=== PATIENT | female | born 1950 | race Caucasian/White ===

== ENCOUNTER → 2016-11-03 | Outpatient (CLI) | payer MEDICARE ==
[2016-11-03 13:39] LABS: BASO % 0.4 % (0.0-1.0); EOS # 0.1 K/mm3 (0.0-0.50); EOS % 1.5 % (0.0-3.0); LARGE UNSTAINED CELL # 0.2 K/mm3 (0.0-0.4); LARGE UNSTAINED CELL % 2.5 % (0.0-4.0); LYMPH # 2.5 K/mm3 (1.5-4.5); MEAN CORPUSCULAR HEMOGLOBIN 27.9 pg (27.0-33.0); MEAN CORPUSCULAR HGB CONC 31.7 g/dl (32.0-36.5); MONO # 0.6 K/mm3 (0.0-0.8); NEUTROPHILS # 4.9 K/mm3 (1.8-7.7); NEUTROPHILS % 58.6 % (36.0-66.0); PLATELET COUNT, AUTOMATED 421 k/mm3 (150-450); RED CELL DISTRIBUTION WIDTH 12.6 % (11.5-14.5); WHITE BLOOD COUNT 8.4 K/mm3 (4.0-10.0)
[2016-11-03 13:47] LABS: ALBUMIN 4.1 GM/DL (3.2-5.2); ALBUMIN/GLOBULIN RATIO 1.32 (1.00-1.93); ALKALINE PHOSPHATASE 163 U/L (45-117); ALT/SGPT 25 U/L (12-78); AMYLASE 94 U/L (25-115); ANION GAP 8 MEQ/L (8-16); AST/SGOT 18 U/L (15-37); BILIRUBIN,TOTAL 0.4 MG/DL (0.2-1.0); BLOOD UREA NITROGEN 19 MG/DL (7-18); CALCIUM LEVEL 10.7 MG/DL (8.8-10.2); CARBON DIOXIDE LEVEL 28 MEQ/L (21-32); CHLORIDE LEVEL 104 MEQ/L (98-107); GLOMERULAR FILTRATION RATE > 60.0 (>45); GLUCOSE, FASTING 80 MG/DL (80-110); POTASSIUM SERUM 4.2 MEQ/L (3.5-5.1); SODIUM LEVEL 140 MEQ/L (136-145); TOTAL PROTEIN 7.2 GM/DL (6.4-8.2)
[2016-11-05 00:11] LABS: TISSUE TRANSGLUTAMINASE IgG <2 U/mL (0-5)
== END ==
LOC: M SMT 09:55
PROVIDERS: ATTEND Family Medicine
DX: R19.7 Diarrhea, unspecified (principal)

== ENCOUNTER → 2017-01-21 | Outpatient (CLI) | payer MEDICARE | LOC: M SMT 15:50 | PROVIDERS: ATTEND Internal Medicine Gastroenterology | DX: R19.4 Change in bowel habit (principal); K59.1 Functional diarrhea; R74.8 Abnormal levels of other serum enzymes ==

== ENCOUNTER → 2017-03-30 | Outpatient (REF) | payer MEDICARE | LOC: M LAB REF 08:00 | PROVIDERS: ATTEND Internal Medicine Gastroenterology | DX: K59.1 Functional diarrhea (principal) ==

== ENCOUNTER → 2017-04-22 | Outpatient (CLI) | payer MEDICARE ==
[2017-04-22 13:39] LABS: ANION GAP 6 MEQ/L (8-16); BLOOD UREA NITROGEN 16 MG/DL (7-18); CALCIUM LEVEL 10.3 MG/DL (8.8-10.2); CARBON DIOXIDE LEVEL 26 MEQ/L (21-32); CHLORIDE LEVEL 107 MEQ/L (98-107); CREATININE FOR GFR 0.78 MG/DL (0.55-1.02); GLOMERULAR FILTRATION RATE > 60.0 (>45); GLUCOSE, FASTING 87 MG/DL (80-110); POTASSIUM SERUM 4.3 MEQ/L (3.5-5.1); SODIUM LEVEL 139 MEQ/L (136-145)
== END ==
LOC: M SMT 09:51
PROVIDERS: ATTEND Family Medicine
DX: E83.52 Hypercalcemia (principal)

== ENCOUNTER → 2017-06-17 | Outpatient (CLI) | payer MEDICARE ==
[2017-06-17 13:39] LABS: ANION GAP 9 MEQ/L (8-16); BLOOD UREA NITROGEN 16 MG/DL (7-18); CALCIUM LEVEL 10.1 MG/DL (8.8-10.2); CARBON DIOXIDE LEVEL 26 MEQ/L (21-32); CHLORIDE LEVEL 106 MEQ/L (98-107); CREATININE FOR GFR 0.75 MG/DL (0.55-1.02); GLOMERULAR FILTRATION RATE > 60.0 (>45); GLUCOSE, FASTING 89 MG/DL (80-110); POTASSIUM SERUM 4.2 MEQ/L (3.5-5.1); SODIUM LEVEL 141 MEQ/L (136-145)
== END ==
LOC: M SMT 09:08
PROVIDERS: ATTEND Family Medicine
DX: E21.0 Primary hyperparathyroidism (principal)

== ENCOUNTER → 2017-06-22 | Outpatient (CLI) | payer MEDICARE ==
--- NOTE | 2017-06-22 10:20 | REP ---
STANDING AP BILATERAL KNEES: Standing AP views of bilateral knees performed. There is no fracture or dislocation. I do not see significant arthritic change on the right side. However, on the left, there is mild medial joint space narrowing with subchondral sclerosis. There is mild spurring of the tibial spines. IMPRESSION: Mild degenerative changes left knee in the medial compartment. Signed by Jose Siegel MD 06/22/2017 01:41 P
--- NOTE | 2017-06-22 10:21 | REP ---
LEFT KNEE SERIES: Four views of the left knee are performed. There is no acute fracture or dislocation. There is mild medial joint space narrowing with subchondral sclerosis and spurring. There is mild superior patellar spurring. There is no significant joint effusion. IMPRESSION: Mild degenerative changes. Signed by Jose Siegel MD 06/22/2017 01:41 P
[2017-06-22 10:34] LABS: CHOLESTEROL LEVEL 165 MG/DL (<200); TRIGLYCERIDES LEVEL 109 MG/DL (<150); URIC ACID 8.4 MG/DL (2.6-6.0)
[2017-06-24 00:55] LABS: Lyme Disease IgG/IgM Antibodie <0.91 ISR (0.00-0.90); Lyme Disease IgM Ab Quantitati <0.80 index (0.00-0.79)
== END ==
LOC: M LAB 09:31
PROVIDERS: ATTEND Family Medicine
DX: M25.562 Pain in left knee (principal); Z79.899 Other long term (current) drug therapy

== ENCOUNTER 2017-09-15 13:16 | Day surgery (SDC) | payer MEDICARE ==
[~2017-09-15] VITALS: Ht 157.5 cm; Wt 70.8 kg
[2017-09-15] MEDS ORDERED: D5W 1,000 ML IV SCH (13:30)
[2017-09-15] MEDS ORDERED: SIMV40TA2 PO (13:43)
[2017-09-15] MEDS ORDERED: AMLO5TAB2 PO (13:43)
[2017-09-15] MEDS ORDERED: LOSA100T36 PO (13:43)
[2017-09-15] MEDS ORDERED: LEVOTAB10 PO (13:43)
[2017-09-15] MEDS ORDERED: ASPI1TAB PO (13:54)
[2017-09-15] MEDS ORDERED: LIDOCAINE VISCOUS 2% SOLN 15ML UDC As Ordered ONE (14:20)
[2017-09-15] MEDS ORDERED: MIDAZOLAM INJ 2 MG/2 ML VIAL (J2250) As Ordered ONE ×2 (14:21→14:22)
[2017-09-15 15:45] VITALS: BP 126/87
[2017-09-15] MEDS ORDERED: NS 1,000 ML IV SCH (15:45)
[2017-09-15] MEDS ORDERED: MIDAZOLAM INJ 5 MG/ML VIAL (J2250) IV ONE (15:45)
--- NOTE | 2017-09-16 08:52 | T-ECHO ---
DATE OF PROCEDURE: 09/15/2017 PREPROCEDURE DIAGNOSES: Secundum atrial septal defect with interatrial septal aneurysm. POSTPROCEDURE DIAGNOSIS: Secundum atrial septal defect with interatrial septal aneurysm. FINDINGS: 0.55 cm secundum atrial septal defect, associated interatrial septal aneurysm. Mitral valve prolapse with moderate mitral valve regurgitation. PROCEDURE PERFORMED: Transesophageal echocardiogram (no saline contrast). PROCEDURE PERFORMED BY: Vito Samano MD LAW OFFICE RECEPTIONIST: None. INTRAVENOUS (IV) CONSCIOUS SEDATION: Midazolam 5 mg IV. COMPLICATIONS: None. PROCEDURE DESCRIPTION: Patient was given viscous lidocaine to gargle at the start of the procedure. She received a total of 5 mg of midazolam IV for conscious sedation. Rhythm was sinus. Esophageal intubation was accomplished without difficulty using a Sid phased array two-dimensional multiplane transesophageal echocardiogram probe. The left ventricle appeared normal in size and systolic function. Interatrial septal aneurysm was present involving the secundum portion of the atrial septum. Towards the lower portion of the secundum portion of the interatrial septum was a 0.55 cm diameter secundum atrial septal defect, which demonstrated continuous unidirectional low from left atrium to right atrium by color flow Doppler. The amount of shunting from left atrium to right atrium overall appears to be small. Pulmonary venous inflow connections to the left atrium were normal. No thrombi were seen involving the inter-atrial septal aneurysm. No masses, thrombi, or spontaneous echo contrast was seen within the atria or their appendages. Left ventricle appeared normal in size and systolic function. No regional wall motion abnormalities of the left ventricle. No pericardial effusion. Distal aortic arch and descending thoracic aorta appeared normal. Aortic valve was three-cuspid and was structurally and functionally normal. Mild prolapse of the mitral leaflets was present, especially involving the posterior mitral leaflet. Associated moderate mitral regurgitation. CONCLUSIONS: 1. Small secundum atrial septal defect measuring 0.55 cm in diameter with mild amount of left atrium to right atrium shunting. No right atrium to left atrium shunting. 2. Interatrial septal aneurysm. 3. 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 4. Normal left ventricle size and systolic function. RECOMMENDATIONS: Because the interatrial septal aneurysm with associated atrial septal defect has not been associated with any previous embolic events and because the amount of shunting across the small size atrial septal aneurysm appears to be small, recommend medical management rather than closure. Suggest continuation of aspirin as long as the patient can tolerate this medication. Copy: Dr. Cora Osuna Ag[place]
== END 2017-09-15 15:50 | disposition home or self-care (01) ==
LOC: M OPP 13:16
PROVIDERS: ATTEND Internal Medicine Cardiovascular Disease
DX: Q21.1 Atrial septal defect (principal); I10 Essential (primary) hypertension; E78.5 Hyperlipidemia, unspecified; R01.1 Cardiac murmur, unspecified; R03.0 Elevated blood-pressure reading, without diagnosis of hypertension; Z79.82 Long term (current) use of aspirin; Z79.899 Other long term (current) drug therapy
CPT/HCPCS: 93312; 93320; 93325; J2250

== ENCOUNTER → 2017-10-14 | Outpatient (CLI) | payer MEDICARE ==
[2017-10-14 13:26] LABS: IONIZED CALCIUM 5.3 MG/DL (4.5-5.3)
[2017-10-14 14:26] LABS: ANION GAP 5 MEQ/L (8-16); BLOOD UREA NITROGEN 17 MG/DL (7-18); CALCIUM LEVEL 10.3 MG/DL (8.8-10.2); CARBON DIOXIDE LEVEL 30 MEQ/L (21-32); CHLORIDE LEVEL 107 MEQ/L (98-107); CREATININE FOR GFR 0.73 MG/DL (0.55-1.02); GLOMERULAR FILTRATION RATE > 60.0 (>45); GLUCOSE, FASTING 88 MG/DL (80-110); POTASSIUM SERUM 4.8 MEQ/L (3.5-5.1); SODIUM LEVEL 142 MEQ/L (136-145)
[2017-10-14 16:31] LABS: PTH INTACT 94.9 PG/ML (14.0-72.0)
== END ==
LOC: M SMT 08:57
DX: E21.0 Primary hyperparathyroidism (principal)
CPT/HCPCS: 82330

== ENCOUNTER 2017-11-07 08:33 | Emergency (ER) | payer MEDICARE ==
[2017-11-07] MEDS: ONDANSETRON 4MG/2ML VIAL (J2405) IV (09:30)
[2017-11-07] MEDS: fentaNYL 100 MCG/2 ML INJECTION (J3010) IV ×2 (10:02→11:29)
[2017-11-07 10:21] LABS: BASO % 0.2 % (0.0-1.0); EOS # 0.1 10^3/uL (0.0-0.50); EOS % 0.3 % (0.0-3.0); HEMATOCRIT 42.7 % (36.0-47.0); HEMOGLOBIN 14.2 g/dl (12.0-16.0); IMMATURE GRANULOCYTE # 0.1 10^3/uL (0-0); IMMATURE GRANULOCYTE % 0.4 % (0-0); LYMPH # 1.8 10^3/uL (1.5-4.5); LYMPH % 10.1 % (24.0-44.0); MEAN CORPUSCULAR HEMOGLOBIN 28.7 pg (27.0-33.0); MEAN CORPUSCULAR HGB CONC 33.3 g/dl (32.0-36.5); MEAN CORPUSCULAR VOLUME 86.4 fl (80.0-96.0); MONO # 0.8 10^3/uL (0.0-0.8); MONO % 4.7 % (0.0-5.0); NEUTROPHILS # 14.7 10^3/uL (1.8-7.7); NEUTROPHILS % 84.3 % (36.0-66.0); PLATELET COUNT, AUTOMATED 421 10^3/uL (150-450); RED BLOOD COUNT 4.94 10^6/uL (4.00-5.40); RED CELL DISTRIBUTION WIDTH 13.2 % (11.5-14.5); WHITE BLOOD COUNT 17.5 10^3/uL (4.0-10.0)
[2017-11-07 10:44] LABS: ANION GAP 7 MEQ/L (8-16); BLOOD UREA NITROGEN 16 MG/DL (7-18); CALCIUM LEVEL 10.6 MG/DL (8.8-10.2); CARBON DIOXIDE LEVEL 28 MEQ/L (21-32); CHLORIDE LEVEL 105 MEQ/L (98-107); CREATININE FOR GFR 0.78 MG/DL (0.55-1.30); GLOMERULAR FILTRATION RATE > 60.0 (>45); GLUCOSE, FASTING 101 MG/DL (70-100); POTASSIUM SERUM 4.1 MEQ/L (3.5-5.1); SODIUM LEVEL 140 MEQ/L (136-145)
== END 2017-11-07 11:33 | disposition short-term general hospital (02) ==
LOC: M ED 08:33
DX: S82.302A Unspecified fracture of lower end of left tibia, initial encounter for closed fracture (principal); W00.0XXA Fall on same level due to ice and snow, initial encounter; Y92.018 Other place in single-family (private) house as the place of occurrence of the external cause; I10 Essential (primary) hypertension
CPT/HCPCS: J2405

== ENCOUNTER → 2018-02-21 | Outpatient (CLI) | payer MEDICARE ==
[2018-02-21 18:18] LABS: BASO % 0.4 % (0.0-1.0); EOS # 0.1 10^3/uL (0.0-0.50); EOS % 1.4 % (0.0-3.0); HEMATOCRIT 41.9 % (36.0-47.0); HEMOGLOBIN 13.6 g/dl (12.0-15.5); IMMATURE GRANULOCYTE % 0.3 % (0-3.0); LYMPH # 3.2 10^3/uL (1.5-4.5); LYMPH % 31.1 % (24.0-44.0); MEAN CORPUSCULAR HEMOGLOBIN 28.9 pg (27.0-33.0); MEAN CORPUSCULAR HGB CONC 32.5 g/dl (32.0-36.5); MEAN CORPUSCULAR VOLUME 89.1 fl (80.0-96.0); MONO % 9.2 % (0.0-5.0); NEUTROPHILS % 57.6 % (36.0-66.0); PLATELET COUNT, AUTOMATED 434 10^3/uL (150-450); RED CELL DISTRIBUTION WIDTH 13.4 % (11.5-14.5); WHITE BLOOD COUNT 10.4 10^3/uL (4.0-10.0)
[2018-02-21 18:28] LABS: ANION GAP 7 MEQ/L (8-16); BLOOD UREA NITROGEN 14 MG/DL (7-18); CALCIUM LEVEL 10.5 MG/DL (8.8-10.2); CARBON DIOXIDE LEVEL 27 MEQ/L (21-32); CHLORIDE LEVEL 109 MEQ/L (98-107); CREATININE FOR GFR 0.79 MG/DL (0.55-1.30); GLOMERULAR FILTRATION RATE > 60.0 (>45); GLUCOSE, FASTING 82 MG/DL (70-100); POTASSIUM SERUM 4.3 MEQ/L (3.5-5.1); SODIUM LEVEL 143 MEQ/L (136-145)
== END ==
LOC: M SMT 11:58
DX: Z01.818 Encounter for other preprocedural examination (principal)
CPT/HCPCS: 80048

== ENCOUNTER → 2018-04-04 | Outpatient (CLI) | payer MEDICARE | LOC: M WHC 14:25 | DX: M84.462A Pathological fracture, left tibia, initial encounter for fracture (principal); Z78.0 Asymptomatic menopausal state | CPT/HCPCS: 77080 ==

== ENCOUNTER → 2018-04-27 | Outpatient (CLI) | payer MEDICARE | LOC: M WHC 09:17 | DX: Z12.31 Encounter for screening mammogram for malignant neoplasm of breast (principal) | CPT/HCPCS: 77067 ==

== ENCOUNTER → 2018-09-01 | Outpatient (CLI) | payer MEDICARE ==
[2018-09-01 13:27] LABS: BASO % 0.3 % (0.0-1.0); EOS # 0.2 10^3/uL (0.0-0.50); EOS % 2.1 % (0.0-3.0); HEMATOCRIT 43.4 % (36.0-47.0); HEMOGLOBIN 14.1 g/dl (12.0-15.5); IMMATURE GRANULOCYTE % 0.3 % (0-3.0); LYMPH # 2.5 10^3/uL (1.5-4.5); LYMPH % 28.7 % (24.0-44.0); MEAN CORPUSCULAR HEMOGLOBIN 28.8 pg (27.0-33.0); MEAN CORPUSCULAR HGB CONC 32.5 g/dl (32.0-36.5); MEAN CORPUSCULAR VOLUME 88.6 fl (80.0-96.0); MONO # 0.9 10^3/uL (0.0-0.8); NEUTROPHILS # 4.9 10^3/uL (1.8-7.7); NEUTROPHILS % 57.6 % (36.0-66.0); PLATELET COUNT, AUTOMATED 471 10^3/uL (150-450); RED CELL DISTRIBUTION WIDTH 13.2 % (11.5-14.5); WHITE BLOOD COUNT 8.6 10^3/uL (4.0-10.0)
[2018-09-01 13:35] LABS: ALBUMIN 3.7 GM/DL (3.2-5.2); ALBUMIN/GLOBULIN RATIO 1.32 (1.00-1.93); ALKALINE PHOSPHATASE 136 U/L (45-117); ALT/SGPT 36 U/L (12-78); ANION GAP 6 MEQ/L (8-16); AST/SGOT 20 U/L (7-37); BILIRUBIN,TOTAL 0.5 MG/DL (0.2-1.0); BLOOD UREA NITROGEN 16 MG/DL (7-18); CALCIUM LEVEL 8.5 MG/DL (8.8-10.2); CARBON DIOXIDE LEVEL 30 MEQ/L (21-32); CHLORIDE LEVEL 108 MEQ/L (98-107); CHOLESTEROL LEVEL 143 MG/DL (<200); CHOLESTEROL RISK RATIO 2.918 (<5); CREATININE FOR GFR 0.77 MG/DL (0.55-1.30); GLOMERULAR FILTRATION RATE > 60.0 (>39); GLUCOSE, FASTING 88 MG/DL (70-100); HDL CHOLESTEROL 49 MG/DL (>40); LDL CHOLESTEROL 74 MG/DL (<100); NON-HDL-C 94 MG/DL; POTASSIUM SERUM 4.4 MEQ/L (3.5-5.1); SODIUM LEVEL 144 MEQ/L (136-145); TOTAL PROTEIN 6.5 GM/DL (6.4-8.2); TRIGLYCERIDES LEVEL 100 MG/DL (<150)
[2018-09-01 13:39] LABS: PTH INTACT 45.3 PG/ML (18.5-88.0); TOTAL 25(OH) VITAMIN D 44.2 NG/ML (30.0-100.0)
== END ==
LOC: M SMT 07:56
DX: I10 Essential (primary) hypertension (principal); E21.0 Primary hyperparathyroidism; E78.5 Hyperlipidemia, unspecified; E55.9 Vitamin D deficiency, unspecified
CPT/HCPCS: 80053

== ENCOUNTER → 2019-05-08 | Outpatient (CLI) | payer MEDICARE ==
[~2019-05-08] MED LIST: AMLO5TAB6 PO; ASPI81TA26 PO; FISH100049 PO; LEVOTAB10 PO; LOSA100T50 PO; MONT10TA2 PO; PRESCAP PO; SIMV40TA2 PO; VITA100067 PO
[2019-05-08 10:55] LABS: BASO % 0.5 % (0.0-1.0); EOS # 0.3 10^3/uL (0.0-0.50); HEMATOCRIT 43.3 % (36.0-47.0); HEMOGLOBIN 14.1 g/dl (12.0-15.5); LYMPH # 2.8 10^3/uL (1.5-4.5); LYMPH % 32.2 % (24.0-44.0); MEAN CORPUSCULAR HEMOGLOBIN 28.7 pg (27.0-33.0); MEAN CORPUSCULAR HGB CONC 32.6 g/dl (32.0-36.5); MEAN CORPUSCULAR VOLUME 88.2 fl (80.0-96.0); MONO # 0.8 10^3/uL (0.0-0.8); MONO % 9.2 % (0.0-5.0); NEUTROPHILS # 4.8 10^3/uL (1.8-7.7); NEUTROPHILS % 54.9 % (36.0-66.0); PLATELET COUNT, AUTOMATED 433 10^3/uL (150-450); RED BLOOD COUNT 4.91 10^6/uL (4.00-5.40); WHITE BLOOD COUNT 8.7 10^3/uL (4.0-10.0)
[2019-05-08 11:14] LABS: ALBUMIN 3.8 GM/DL (3.2-5.2); ALT/SGPT 20 U/L (12-78); BILIRUBIN,TOTAL 0.4 MG/DL (0.2-1.0); BLOOD UREA NITROGEN 28 MG/DL (7-18); CALCIUM LEVEL 8.8 MG/DL (8.8-10.2); CARBON DIOXIDE LEVEL 29 MEQ/L (21-32); CHLORIDE LEVEL 108 MEQ/L (98-107); CHOLESTEROL LEVEL 169 MG/DL (<200); CHOLESTEROL RISK RATIO 3.017 (<5); CREATININE FOR GFR 0.83 MG/DL (0.55-1.30); FREE T4 0.96 NG/DL (0.76-1.46); GLOMERULAR FILTRATION RATE > 60.0 (>39); GLUCOSE, FASTING 85 MG/DL (70-100); HDL CHOLESTEROL 56 MG/DL (>40); LDL CHOLESTEROL 93 MG/DL (<100); NON-HDL-C 113 MG/DL; POTASSIUM SERUM 4.2 MEQ/L (3.5-5.1); SODIUM LEVEL 143 MEQ/L (136-145); TOTAL 25(OH) VITAMIN D 28.9 NG/ML (30.0-100.0); TOTAL PROTEIN 6.6 GM/DL (6.4-8.2); TRIGLYCERIDES LEVEL 102 MG/DL (<150)
== END ==
LOC: M SMT 08:04
PROVIDERS: ATTEND Physician Assistant
DX: I10 Essential (primary) hypertension (principal); E78.5 Hyperlipidemia, unspecified; Z13.0 Encounter for screening for diseases of the blood and blood-forming organs and certain disorders involving the immune mechanism; E55.9 Vitamin D deficiency, unspecified

== ENCOUNTER → 2020-04-01 | Outpatient (CLI) | payer MEDICARE ==
[~2020-04-01] MED LIST changes: -MONT10TA2 PO; +MONT10TA4 PO; -SIMV40TA2 PO; +SIMV40TA20 PO
[2020-04-01 11:59] LABS: BASO % 0.3 % (0.0-1.0); EOS # 0.3 10^3/uL (0.0-0.5); EOS % 3.5 % (0.0-3.0); HEMATOCRIT 42.2 % (36.0-47.0); HEMOGLOBIN 13.4 g/dl (12.0-15.5); LYMPH # 2.6 10^3/uL (1.5-5.0); LYMPH % 30.1 % (24.0-44.0); MEAN CORPUSCULAR HEMOGLOBIN 28.2 pg (27.0-33.0); MEAN CORPUSCULAR HGB CONC 31.8 g/dl (32.0-36.5); MEAN CORPUSCULAR VOLUME 88.8 fl (80.0-96.0); MONO # 0.9 10^3/uL (0.0-0.8); MONO % 10.1 % (0.0-5.0); NEUTROPHILS # 4.9 10^3/uL (1.5-8.5); NEUTROPHILS % 55.8 % (36.0-66.0); PLATELET COUNT, AUTOMATED 432 10^3/uL (150-450); RED BLOOD COUNT 4.75 10^6/uL (4.00-5.40); WHITE BLOOD COUNT 8.8 10^3/uL (4.0-10.0)
[2020-04-01 12:59] LABS: ALBUMIN 3.8 GM/DL (3.2-5.2); ALT/SGPT 21 U/L (12-78); BILIRUBIN,TOTAL 0.8 MG/DL (0.2-1.0); BLOOD UREA NITROGEN 19 MG/DL (7-18); CALCIUM LEVEL 9.2 MG/DL (8.8-10.2); CARBON DIOXIDE LEVEL 25 MEQ/L (21-32); CHLORIDE LEVEL 105 MEQ/L (98-107); CHOLESTEROL LEVEL 185 MG/DL (<200); CREATININE FOR GFR 0.94 MG/DL (0.55-1.30); GLOMERULAR FILTRATION RATE > 60.0 (>39); GLUCOSE, FASTING 88 MG/DL (70-100); HDL CHOLESTEROL 53 MG/DL (>40); LDL CHOLESTEROL 111 MG/DL (<100); NON-HDL-C 132 MG/DL; POTASSIUM SERUM 4.2 MEQ/L (3.5-5.1); SODIUM LEVEL 137 MEQ/L (136-145); TRIGLYCERIDES LEVEL 104 MG/DL (<150)
[2020-04-01 14:05] LABS: TOTAL 25(OH) VITAMIN D 75.7 NG/ML (30.0-100.0)
[2020-04-01 14:18] LABS: PTH INTACT 22.6 PG/ML (18.5-88.0)
== END ==
LOC: M PLALAB 08:24
PROVIDERS: ATTEND Family Medicine
DX: I10 Essential (primary) hypertension (principal); E78.5 Hyperlipidemia, unspecified; E55.9 Vitamin D deficiency, unspecified; E21.0 Primary hyperparathyroidism

== ENCOUNTER → 2020-05-20 | Outpatient (CLI) | payer MEDICARE ==
[~2020-05-20] MED LIST changes: +AMLO1TAB24 PO; -AMLO5TAB6 PO
--- NOTE | 2020-06-04 14:26 | REPMRS ---
Patient History The patient states she has not had a clinical breast exam in over a year. Patient is postmenopausal and is nulliparous. No known family history of cancer. No Hormone Replacement Therapy Digital Woman Screen Mammo: May 20, 2020 - Exam #: [id number] Bilateral CC and MLO view(s) were taken. Technologist: Marilu Webster Technologist Prior study comparison: April 27, 2018, bilateral digital woman screen mammo performed at [facility] [place]. October 2015, bilateral screening 3D/tomosynthesis, performed at [facility]. May 09, 2015, bilateral digital mammo screening bilat, performed at [facility]. FINDINGS: There are scattered fibroglandular densities. The Volpara volumetric breast density category is:B. There has been no change in the appearance of the mammogram from the prior studies. There is a mild amount of scattered fibroglandular density which is fairly symmetric. There is no interval development of dominant mass, architectural distortion, or grouped microcalcification suggestive of malignancy. 3-D tomosynthesis shows no additional findings. Assessment: BI-RADS/ACR category 1 mammogram. Negative Mammogram. Recommendation Routine screening mammogram of both breasts in 1 year (for women over age 40). This patient's Lifetime Breast Cancer Risk is estimated at 4.9 %. This mammogram was interpreted with the aid of an FDA-approved computer-aided dectection system. Electronically Signed By: Hector Agustin MD 06/04/20 [id number]
--- NOTE | 2020-06-25 08:58 | DEXA ---
AP SPINE L1 - L4 0.868 -2.6 -0.9 LT FEMUR TOTAL 0.836 -1.7 0.2 LT NECK 0.692 -2.5 -0.7 RT FEMUR TOTAL 0.893 -0.9 0.7 RT NECK 0.712 -2.3 -0.6 TOTAL BODY TOTAL OTHER COMMENTS: There is low bone density of the hips. 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 The decreased density of the spine does represent a significant change. The increased density of the left hip does represent significant change. The increased density of the right hip does represent a significant change. The density of the spine has decreased 9.4% since the initial exam on 07/23/2013. The decreased 11.4% since the most recent exam on 04/04/2018. The density of the left hip has decreased 5.5% since the initial exam on 07/23/2013. The density of the left hip has increased 15.0% since the most recent exam on 04/04/2018. The density of the right hip has increased 6.1% since the initial exam on 07/23/2013. The density of the right hip has increased 5.2% since the most recent exam on 04/04/2018. FOLLOW-UP: Recommendation for the next bone density exam: 2 years. FARIDA
== END ==
LOC: M WHC 17:11
PROVIDERS: ATTEND Family Medicine
DX: Z12.31 Encounter for screening mammogram for malignant neoplasm of breast (principal); M81.0 Age-related osteoporosis without current pathological fracture

== ENCOUNTER → 2020-09-22 | Outpatient (CLI) | payer MEDICARE ==
[~2020-09-22] MED LIST changes: -MONT10TA4 PO; +MONT5TAB2 PO
[2020-09-22 10:31] LABS: BASO % 0.5 % (0.0-1.0); EOS # 0.4 10^3/uL (0.0-0.5); EOS % 4.4 % (0.0-3.0); HEMATOCRIT 42.5 % (36.0-47.0); HEMOGLOBIN 13.2 g/dl (12.0-15.5); LYMPH # 2.9 10^3/uL (1.5-5.0); MEAN CORPUSCULAR HEMOGLOBIN 27.7 pg (27.0-33.0); MEAN CORPUSCULAR HGB CONC 31.1 g/dl (32.0-36.5); MEAN CORPUSCULAR VOLUME 89.1 fl (80.0-96.0); MONO # 0.8 10^3/uL (0.0-0.8); MONO % 9.3 % (0.0-5.0); NEUTROPHILS # 4.4 10^3/uL (1.5-8.5); NEUTROPHILS % 51.6 % (36.0-66.0); PLATELET COUNT, AUTOMATED 429 10^3/uL (150-450); RED BLOOD COUNT 4.77 10^6/uL (4.00-5.40); WHITE BLOOD COUNT 8.4 10^3/uL (4.0-10.0)
[2020-09-22 11:26] LABS: ALBUMIN 3.6 GM/DL (3.2-5.2); ALT/SGPT 20 U/L (12-78); BILIRUBIN,TOTAL 0.3 MG/DL (0.2-1.0); BLOOD UREA NITROGEN 20 MG/DL (7-18); CALCIUM LEVEL 8.9 MG/DL (8.8-10.2); CARBON DIOXIDE LEVEL 28 MEQ/L (21-32); CHLORIDE LEVEL 105 MEQ/L (98-107); CHOLESTEROL LEVEL 200 MG/DL (<200); CHOLESTEROL RISK RATIO 3.773 (<5); CREATININE FOR GFR 0.88 MG/DL (0.55-1.30); FREE T4 0.97 NG/DL (0.76-1.46); GLOMERULAR FILTRATION RATE > 60.0 (>39); GLUCOSE, FASTING 87 MG/DL (70-100); HDL CHOLESTEROL 53 MG/DL (>40); LDL CHOLESTEROL 120 MG/DL (<100); NON-HDL-C 147 MG/DL; POTASSIUM SERUM 4.5 MEQ/L (3.5-5.1); SODIUM LEVEL 140 MEQ/L (136-145); TOTAL PROTEIN 6.5 GM/DL (6.4-8.2); TRIGLYCERIDES LEVEL 133 MG/DL (<150)
[2020-09-22 13:39] LABS: TOTAL 25(OH) VITAMIN D 73.1 NG/ML (30.0-100.0)
[2020-09-22 13:40] LABS: PTH INTACT 22.1 PG/ML (18.5-88.0)
== END ==
LOC: M WUC 08:40
PROVIDERS: ATTEND Family Medicine
DX: E21.0 Primary hyperparathyroidism (principal); E78.5 Hyperlipidemia, unspecified; E55.9 Vitamin D deficiency, unspecified; I10 Essential (primary) hypertension

== ENCOUNTER → 2021-03-17 | Outpatient (CLI) | payer MEDICARE ==
[~2021-03-17] MED LIST changes: +MONT10TA10 PO; -MONT5TAB2 PO
[2021-03-17 11:48] LABS: BASO # 0.1 10^3/uL (0.0-0.2); BASO % 0.7 % (0.0-1.0); EOS # 0.3 10^3/uL (0.0-0.5); EOS % 3.5 % (0.0-3.0); HEMATOCRIT 42.8 % (36.0-47.0); HEMOGLOBIN 13.5 g/dl (12.0-15.5); LYMPH # 2.8 10^3/uL (1.5-5.0); LYMPH % 34.4 % (24.0-44.0); MEAN CORPUSCULAR HEMOGLOBIN 28.4 pg (27.0-33.0); MEAN CORPUSCULAR HGB CONC 31.5 g/dl (32.0-36.5); MEAN CORPUSCULAR VOLUME 90.1 fl (80.0-96.0); MONO # 0.9 10^3/uL (0.0-0.8); MONO % 10.7 % (2.0-8.0); NEUTROPHILS # 4.2 10^3/uL (1.5-8.5); NEUTROPHILS % 50.3 % (36.0-66.0); PLATELET COUNT, AUTOMATED 421 10^3/uL (150-450); RED BLOOD COUNT 4.75 10^6/uL (4.00-5.40); WHITE BLOOD COUNT 8.3 10^3/uL (4.0-10.0)
[2021-03-17 12:40] LABS: BLOOD UREA NITROGEN 21 MG/DL (7-18); CARBON DIOXIDE LEVEL 28 MEQ/L (21-32); CHLORIDE LEVEL 106 MEQ/L (98-107); CREATININE FOR GFR 0.82 MG/DL (0.55-1.30); GLOMERULAR FILTRATION RATE > 60.0 (>39); GLUCOSE, FASTING 77 MG/DL (70-100); POTASSIUM SERUM 5.1 MEQ/L (3.5-5.1); SODIUM LEVEL 139 MEQ/L (136-145)
[2021-03-17 12:41] LABS: ALBUMIN 3.9 GM/DL (3.2-5.2); ALT/SGPT 19 U/L (12-78); BILIRUBIN,TOTAL 0.3 MG/DL (0.2-1.0); CALCIUM LEVEL 9.5 MG/DL (8.8-10.2); CHOLESTEROL LEVEL 166 MG/DL (<200); CHOLESTEROL RISK RATIO 3.018 (<5); HDL CHOLESTEROL 55 MG/DL (>40); LDL CHOLESTEROL 90 MG/DL (<100); NON-HDL-C 111 MG/DL; TOTAL PROTEIN 6.6 GM/DL (6.4-8.2); TRIGLYCERIDES LEVEL 105 MG/DL (<150)
== END ==
LOC: M WUC 08:18
PROVIDERS: ATTEND Family Medicine
DX: I10 Essential (primary) hypertension (principal)

== ENCOUNTER → 2021-05-27 | Outpatient (REF) | payer MEDICARE | LOC: M LAB REF 12:29 | PROVIDERS: ATTEND Ophthalmology | DX: D23.121 Other benign neoplasm of skin of left upper eyelid, including canthus (principal) ==

== ENCOUNTER → 2021-06-04 | Outpatient (CLI) | payer MEDICARE ==
--- NOTE | 2021-06-04 10:01 | REP ---
INDICATION: PAIN IN LEFT SHOULDER. COMPARISON: None. TECHNIQUE: Three views of the left shoulder are provided. FINDINGS: The left glenohumeral and acromioclavicular joints are normally aligned. Periarticular soft tissues are unremarkable. There is minimal AC joint narrowing and hypertrophy consistent with osteoarthritis. The visualized left hemithorax is unremarkable. IMPRESSION: Mild narrowing and hypertrophy at the AC joint. Otherwise negative left shoulder radiographs. <Electronically signed by Hector Agustin > 06/04/21 [id number]
== END ==
LOC: M PLAIMG 09:19
PROVIDERS: ATTEND Physician Assistant
DX: M19.012 Primary osteoarthritis, left shoulder (principal)

== ENCOUNTER → 2021-06-22 | Outpatient (CLI) | payer MEDICARE ==
--- NOTE | 2021-06-23 09:50 | REP ---
INDICATION: CLEARANCE FOR MRI, EVAL FOR METAL IN EYES. COMPARISON: None. TECHNIQUE: AP and lateral views of the facial bones were obtained. FINDINGS: There are no fractures demonstrated. The paranasal sinuses appear clear. There are no metallic foreign bodies projected over either orbit. IMPRESSION: There are no findings to contraindicate MRI procedure. <Electronically signed by Isaiah Craft > 06/23/21 [id number]
== END ==
LOC: M RAD 15:22
PROVIDERS: ATTEND Physician Assistant
DX: M25.512 Pain in left shoulder (principal)

== ENCOUNTER → 2021-06-30 | Outpatient (CLI) | payer MEDICARE ==
--- NOTE | 2021-06-30 09:48 | REP ---
INDICATION: PAIN IN LT SHOULDER. COMPARISON: None. TECHNIQUE: Preaugmented coronal T1 and T2 fat suppressed, axial T1. Post-augmented axial fat suppressed T1, sagittal fat suppressed T2, coronal fat suppressed T1 and T2 and ABER. FINDINGS: There is mild hypertrophic degenerative change seen in the acromioclavicular joint. The acromion process is type 1. There is patchy and linear T2 hyper signal seen throughout the supraspinatus tendon with mild supraspinatus muscle atrophy. There is no supraspinatus musculotendinous retraction. Normal appearing low signal is seen throughout the subscapularis, infraspinatus, and teres minor tendons. The biceps tendon resides within the bicipital groove. There is no mame glenohumeral joint effusion. There is a minimal amount of fluid in the subcoracoid recess. There is evidence of coracohumeral and coracoacromial ligamentous thickening. There are some patchy T2 and linear T2 hyper signal changes seen in the labrum particularly the superior labrum anterior IMPRESSION: 1. Supraspinatus tendinitis/tendinosis. A partial full-thickness tear cannot be ruled out. 2. Ligamentous thickening as described above consistent with the clinical diagnosis of impingement syndrome. 3. Labral signal changes as described above. The labral tear is of clinical concern consider follow-up with shoulder MRI arthrography. <Electronically signed by Arnoldo Doherty > 06/30/21 [id number]
== END ==
LOC: M PLAIMG 08:25
PROVIDERS: ATTEND Physician Assistant
DX: R93.7 Abnormal findings on diagnostic imaging of other parts of musculoskeletal system (principal); M25.512 Pain in left shoulder

== ENCOUNTER → 2021-08-19 | Outpatient (CLI) | payer MEDICARE ==
[2021-08-19 09:29] LABS: BASO # 0.1 10^3/uL (0.0-0.2); BASO % 0.9 % (0.0-1.0); EOS # 0.3 10^3/uL (0.0-0.5); EOS % 4.9 % (0.0-3.0); HEMATOCRIT 42.1 % (36.0-47.0); HEMOGLOBIN 13.5 g/dl (12.0-15.5); LYMPH % 31.1 % (24.0-44.0); MEAN CORPUSCULAR HEMOGLOBIN 28.5 pg (27.0-33.0); MEAN CORPUSCULAR HGB CONC 32.1 g/dl (32.0-36.5); MONO # 1.1 10^3/uL (0.0-0.8); MONO % 16.8 % (2.0-8.0); NEUTROPHILS % 46.1 % (36.0-66.0); PLATELET COUNT, AUTOMATED 424 10^3/uL (150-450); RED BLOOD COUNT 4.73 10^6/uL (4.00-5.40); WHITE BLOOD COUNT 6.6 10^3/uL (4.0-10.0)
[2021-08-19 10:20] LABS: ALBUMIN 3.6 GM/DL (3.2-5.2); ALT/SGPT 28 U/L (12-78); BILIRUBIN,TOTAL 0.3 MG/DL (0.2-1.0); BLOOD UREA NITROGEN 19 MG/DL (7-18); CALCIUM LEVEL 9.5 MG/DL (8.8-10.2); CARBON DIOXIDE LEVEL 29 MEQ/L (21-32); CHLORIDE LEVEL 107 MEQ/L (98-107); CHOLESTEROL LEVEL 175 MG/DL (<200); CHOLESTEROL RISK RATIO 3.365 (<5); CREATININE FOR GFR 0.94 MG/DL (0.55-1.30); FREE T4 1.04 NG/DL (0.76-1.46); GLOMERULAR FILTRATION RATE > 60.0 (>39); GLUCOSE, FASTING 93 MG/DL (70-100); HDL CHOLESTEROL 52 MG/DL (>40); LDL CHOLESTEROL 102 MG/DL (<100); NON-HDL-C 123 MG/DL; SODIUM LEVEL 140 MEQ/L (136-145); TOTAL PROTEIN 6.8 GM/DL (6.4-8.2); TRIGLYCERIDES LEVEL 106 MG/DL (<150)
[2021-08-19 10:32] LABS: TOTAL 25(OH) VITAMIN D 75.9 NG/ML (30.0-100.0)
== END ==
LOC: M WUC 08:10
PROVIDERS: ATTEND Physician Assistant
DX: I10 Essential (primary) hypertension (principal); E55.9 Vitamin D deficiency, unspecified; R53.83 Other fatigue

== ENCOUNTER → 2021-09-18 | Outpatient (CLI) | payer MEDICARE ==
[~2021-09-18] MED LIST changes: +LOSA100T45 PO; -LOSA100T50 PO; -MONT10TA10 PO; +MONT10TA97 PO
== END ==
LOC: M WUC 10:46
PROVIDERS: ATTEND Family Medicine
DX: L29.9 Pruritus, unspecified (principal)

== ENCOUNTER → 2021-10-12 | Outpatient (CLI) | payer MEDICARE | LOC: M WHC 11:50 | PROVIDERS: ATTEND Family Medicine | DX: Z12.31 Encounter for screening mammogram for malignant neoplasm of breast (principal) ==

== ENCOUNTER → 2021-11-03 | Outpatient (CLI) | payer MEDICARE ==
[~2021-11-03] MED LIST changes: +E-Z-GAS II EFFERVESCENT PACKET (SODIUM BICARB./CITRIC ACID/SIMETHICONE) As Ordered ONE; +E-Z-HD 98% w/w 340GM SUSP BTL As Ordered ONE; +E-Z-PAQUE 96% w/w SUSP 176GM BTL As Ordered ONE
== END ==
LOC: M RAD 08:20
PROVIDERS: ATTEND Internal Medicine Gastroenterology
DX: K80.20 Calculus of gallbladder without cholecystitis without obstruction (principal); K21.9 Gastro-esophageal reflux disease without esophagitis; J39.2 Other diseases of pharynx

== ENCOUNTER → 2022-03-23 | Outpatient (CLI) | payer MEDICARE ==
[~2022-03-23] MED LIST changes: -E-Z-GAS II EFFERVESCENT PACKET (SODIUM BICARB./CITRIC ACID/SIMETHICONE) As Ordered ONE; -E-Z-HD 98% w/w 340GM SUSP BTL As Ordered ONE; -E-Z-PAQUE 96% w/w SUSP 176GM BTL As Ordered ONE
[2022-03-23 10:28] LABS: BASO % 0.5 % (0.0-1.0); EOS # 0.3 10^3/uL (0.0-0.5); EOS % 3.7 % (0.0-3.0); HEMATOCRIT 42.6 % (36.0-47.0); HEMOGLOBIN 13.4 g/dl (12.0-15.5); LYMPH # 3.1 10^3/uL (1.5-5.0); LYMPH % 34.8 % (24.0-44.0); MEAN CORPUSCULAR HEMOGLOBIN 27.7 pg (27.0-33.0); MEAN CORPUSCULAR HGB CONC 31.5 g/dl (32.0-36.5); MONO # 0.8 10^3/uL (0.0-0.8); MONO % 8.5 % (2.0-8.0); NEUTROPHILS # 4.6 10^3/uL (1.5-8.5); PLATELET COUNT, AUTOMATED 435 10^3/uL (150-450); RED BLOOD COUNT 4.84 10^6/uL (4.00-5.40); WHITE BLOOD COUNT 8.9 10^3/uL (4.0-10.0)
[2022-03-23 11:20] LABS: ALBUMIN 3.7 GM/DL (3.2-5.2); ALT/SGPT 20 U/L (12-78); BILIRUBIN,TOTAL 0.5 MG/DL (0.2-1.0); BLOOD UREA NITROGEN 18 MG/DL (7-18); CALCIUM LEVEL 9.3 MG/DL (8.8-10.2); CARBON DIOXIDE LEVEL 31 MEQ/L (21-32); CHLORIDE LEVEL 107 MEQ/L (98-107); CHOLESTEROL LEVEL 170 MG/DL (<200); CHOLESTEROL RISK RATIO 2.741 (<5); CREATININE FOR GFR 0.85 MG/DL (0.55-1.30); FREE T4 1.02 NG/DL (0.76-1.46); GLOMERULAR FILTRATION RATE > 60.0 (>39); GLUCOSE, FASTING 86 MG/DL (70-100); HDL CHOLESTEROL 62 MG/DL (>40); LDL CHOLESTEROL 90 MG/DL (<100); NON-HDL-C 108 MG/DL; POTASSIUM SERUM 4.4 MEQ/L (3.5-5.1); SODIUM LEVEL 143 MEQ/L (136-145); TOTAL PROTEIN 6.5 GM/DL (6.4-8.2); TRIGLYCERIDES LEVEL 91 MG/DL (<150)
== END ==
LOC: M WUC 08:26
PROVIDERS: ATTEND Nurse Practitioner Adult Health
DX: E78.5 Hyperlipidemia, unspecified (principal); I10 Essential (primary) hypertension; E55.9 Vitamin D deficiency, unspecified; Z79.899 Other long term (current) drug therapy

== ENCOUNTER → 2022-09-30 | Outpatient (REF) | payer MEDICARE ==
[2022-09-30 10:11] LABS: BASO # 0.1 10^3/uL (0.0-0.2); BASO % 0.5 % (0.0-1.0); EOS # 0.3 10^3/uL (0.0-0.5); EOS % 3.1 % (0.0-3.0); HEMATOCRIT 42.4 % (36.0-47.0); HEMOGLOBIN 13.5 g/dl (12.0-15.5); LYMPH # 3.7 10^3/uL (1.5-5.0); LYMPH % 36.9 % (24.0-44.0); MEAN CORPUSCULAR HEMOGLOBIN 28.6 pg (27.0-33.0); MEAN CORPUSCULAR HGB CONC 31.8 g/dl (32.0-36.5); MEAN CORPUSCULAR VOLUME 89.8 fl (80.0-96.0); MONO # 0.9 10^3/uL (0.0-0.8); MONO % 8.7 % (2.0-8.0); NEUTROPHILS % 50.5 % (36.0-66.0); PLATELET COUNT, AUTOMATED 487 10^3/uL (150-450); RED BLOOD COUNT 4.72 10^6/uL (4.00-5.40); WHITE BLOOD COUNT 9.9 10^3/uL (4.0-10.0)
[2022-09-30 10:41] LABS: ALBUMIN 3.6 G/DL (3.2-5.2); ALKALINE PHOSPHATASE 128 U/L (46-116); ALT/SGPT 26 U/L (7.0-40); AST/SGOT 23 U/L (<34); BILIRUBIN,TOTAL 0.4 MG/DL (0.3-1.2); BLOOD UREA NITROGEN 25 MG/DL (9-23); CALCIUM LEVEL 9.6 MG/DL (8.3-10.6); CARBON DIOXIDE LEVEL 29 MMOL/L (20-31); CHLORIDE LEVEL 104 MMOL/L (98-107); CHOLESTEROL LEVEL 176 MG/DL (<200); CHOLESTEROL RISK RATIO 3.27 (<5); CREATININE FOR GFR 0.89 MG/DL (0.55-1.30); GLOMERULAR FILTRATION RATE > 60.0 (>39); GLUCOSE, FASTING 80 MG/DL (74-106); HDL CHOLESTEROL 53.7 MG/DL (>40); LDL CHOLESTEROL 101.5 MG/DL (<100); NON-HDL-C 122 MG/DL; POTASSIUM SERUM 4.5 MMOL/L (3.5-5.1); PTH INTACT 28.2 PG/ML (18.5-88.0); SODIUM LEVEL 140 MMOL/L (136-145); TOTAL PROTEIN 6.4 G/DL (5.7-8.2); TRIGLYCERIDES LEVEL 104 MG/DL (<150)
[2022-09-30 10:42] LABS: FREE T4 1.05 NG/DL (0.89-1.76)
[2022-09-30 10:43] LABS: THYROID STIMULATING HORMONE 1.025 uIU/ML (0.55-4.78)
== END ==
LOC: M LABWUC 09:15
PROVIDERS: ATTEND Family Medicine
DX: I10 Essential (primary) hypertension (principal); E21.0 Primary hyperparathyroidism; E78.5 Hyperlipidemia, unspecified; E55.9 Vitamin D deficiency, unspecified

== ENCOUNTER → 2022-10-13 | Outpatient (CLI) | payer MEDICARE | LOC: M WHC 14:26 | PROVIDERS: ATTEND Family Medicine | DX: Z12.31 Encounter for screening mammogram for malignant neoplasm of breast (principal) ==

== ENCOUNTER → 2024-02-29 | Outpatient (CLI) | payer MEDICARE ==
[~2024-02-29] MED LIST changes: -LOSA100T45 PO; +LOSA100T46 PO
== END ==
LOC: M PLAIMG 11:13
PROVIDERS: ATTEND Family Medicine
DX: M25.562 Pain in left knee (principal)

== ENCOUNTER → 2024-04-27 | Outpatient (CLI) | payer MEDICARE ==
[2024-04-27 12:06] LABS: BASO % 0.6 % (0.0-1.0); EOS # 0.2 10^3/uL (0.0-0.5); EOS % 3.3 % (0.0-3.0); HEMATOCRIT 43.3 % (36.0-47.0); LYMPH # 2.9 10^3/uL (1.5-5.0); LYMPH % 40.7 % (24.0-44.0); MEAN CORPUSCULAR HEMOGLOBIN 28.6 pg (27.0-33.0); MEAN CORPUSCULAR HGB CONC 32.3 g/dl (32.0-36.5); MEAN CORPUSCULAR VOLUME 88.4 fl (80.0-96.0); MONO # 0.7 10^3/uL (0.0-0.8); MONO % 10.4 % (2.0-8.0); NEUTROPHILS # 3.2 10^3/uL (1.5-8.5); NEUTROPHILS % 44.9 % (36.0-66.0); PLATELET COUNT, AUTOMATED 429 10^3/uL (150-450); WHITE BLOOD COUNT 7.1 10^3/uL (4.0-10.0)
[2024-04-27 12:35] LABS: TOTAL 25(OH) VITAMIN D 59.7 NG/ML (20.0-100.0)
[2024-04-27 12:36] LABS: ALBUMIN 3.9 G/DL (3.2-5.2); ALKALINE PHOSPHATASE 131 U/L (46-116); ALT/SGPT 17 U/L (7.0-40); AST/SGOT 9 U/L (<34); BILIRUBIN,TOTAL 0.5 MG/DL (0.3-1.2); BLOOD UREA NITROGEN 18 MG/DL (9-23); CALCIUM LEVEL 9.5 MG/DL (8.3-10.6); CARBON DIOXIDE LEVEL 27 MMOL/L (20-31); CHLORIDE LEVEL 107 MMOL/L (98-107); CHOLESTEROL LEVEL 167 MG/DL (<200); CHOLESTEROL RISK RATIO 3.72 (<5); CREATININE FOR GFR 0.95 MG/DL (0.55-1.30); GLOMERULAR FILTRATION RATE > 60.0 (>39); GLUCOSE, FASTING 86 MG/DL (74-106); HDL CHOLESTEROL 44.8 MG/DL (>40); NON-HDL-C 122.2 MG/DL; POTASSIUM SERUM 4.7 MMOL/L (3.5-5.1); PTH INTACT 33.5 PG/ML (18.5-88.0); SODIUM LEVEL 140 MMOL/L (136-145); TOTAL PROTEIN 6.5 G/DL (5.7-8.2); TRIGLYCERIDES LEVEL 146 MG/DL (<150)
[2024-04-27 12:37] LABS: FREE T4 1.29 NG/DL (0.89-1.76); THYROID STIMULATING HORMONE 1.691 uIU/ML (0.55-4.78)
== END ==
LOC: M PLALAB 07:16
PROVIDERS: ATTEND Family Medicine
DX: I10 Essential (primary) hypertension (principal); E21.0 Primary hyperparathyroidism; E78.5 Hyperlipidemia, unspecified; E55.9 Vitamin D deficiency, unspecified

== ENCOUNTER → 2024-07-25 | Outpatient (CLI) | payer MEDICARE | LOC: M PLAIMG 12:33 | PROVIDERS: ATTEND Registered Nurse | DX: I08.3 Combined rheumatic disorders of mitral, aortic and tricuspid valves (principal); Q21.10 Atrial septal defect, unspecified; I10 Essential (primary) hypertension; I27.20 Pulmonary hypertension, unspecified ==

== ENCOUNTER → 2024-10-19 | Outpatient (CLI) | payer MEDICARE | LOC: M WHC 08:09 | PROVIDERS: ATTEND Nurse Practitioner Adult Health | DX: Z12.31 Encounter for screening mammogram for malignant neoplasm of breast (principal) ==

== ENCOUNTER → 2025-04-10 | Outpatient (CLI) | payer MEDICARE ==
[2025-04-10 12:30] LABS: BASO # 0.0 10^3/uL (0.0-0.2); BASO % 0.3 % (0.0-1.0); EOS # 0.3 10^3/uL (0.0-0.5); EOS % 2.7 % (0.0-3.0); LYMPH # 2.8 10^3/uL (1.5-5.0); LYMPH % 30.0 % (24.0-44.0); MONO # 0.9 10^3/uL (0.0-0.8); MONO % 9.7 % (2.0-8.0); NEUTROPHILS # 5.4 10^3/uL (1.5-8.5); NEUTROPHILS % 57.1 % (36.0-66.0); PLATELET COUNT, AUTOMATED 426 10^3/uL (150-450)
[2025-04-10 12:42] LABS: TOTAL 25(OH) VITAMIN D 94.4 NG/ML (20.0-100.0)
[2025-04-10 12:43] LABS: ALT/SGPT 17.0 U/L (7.0-40); AST/SGOT 17.0 U/L (<34); CALCIUM LEVEL 9.7 MG/DL (8.3-10.6); CARBON DIOXIDE LEVEL 26.0 MMOL/L (20-31); CHLORIDE LEVEL 106.0 MMOL/L (98-107); CHOLESTEROL LEVEL 170.0 MG/DL (<200); CHOLESTEROL RISK RATIO 3.5 (<5); CREATININE FOR GFR 0.88 MG/DL (0.55-1.30); FREE T4 1.09 NG/DL (0.89-1.76); GLOMERULAR FILTRATION RATE 67.6 (>39); LDL CHOLESTEROL 96.1 MG/DL (<100); NON-HDL-C 121.5 MG/DL; POTASSIUM SERUM 4.4 MMOL/L (3.5-5.1); SODIUM LEVEL 143.0 MMOL/L (136-145); TRIGLYCERIDES LEVEL 127.0 MG/DL (<150)
== END ==
LOC: M WUC 08:15
PROVIDERS: ATTEND Nurse Practitioner Adult Health
DX: I10 Essential (primary) hypertension (principal); E78.5 Hyperlipidemia, unspecified; E55.9 Vitamin D deficiency, unspecified